=== PATIENT | male | born 1940 | race Caucasian/White ===

== ENCOUNTER → 2017-09-10 | Outpatient (CLI) | payer MEDICARE, OTHER | END | disposition home or self-care (01) | LOC: CFH 11:23 | PROVIDERS: ATTEND Nurse Practitioner Primary Care | DX: J44.9 Chronic obstructive pulmonary disease, unspecified (principal) | CPT/HCPCS: 71020 ==

== ENCOUNTER → 2017-09-15 | Outpatient (CLI) | payer MEDICARE, OTHER | END | disposition home or self-care (01) | LOC: CFH 09:23 | PROVIDERS: ATTEND Nurse Practitioner Primary Care | DX: J44.9 Chronic obstructive pulmonary disease, unspecified (principal); J18.9 Pneumonia, unspecified organism; Z12.5 Encounter for screening for malignant neoplasm of prostate; Z12.11 Encounter for screening for malignant neoplasm of colon; Z13.220 Encounter for screening for lipoid disorders; C62.90 Malignant neoplasm of unspecified testis, unspecified whether descended or undescended; C67.9 Malignant neoplasm of bladder, unspecified; E55.9 Vitamin D deficiency, unspecified; E78.2 Mixed hyperlipidemia; I48.91 Unspecified atrial fibrillation; J30.9 Allergic rhinitis, unspecified; E03.9 Hypothyroidism, unspecified; I50.9 Heart failure, unspecified; R73.01 Impaired fasting glucose; R54 Age-related physical debility; Z72.0 Tobacco use; Z95.0 Presence of cardiac pacemaker | CPT/HCPCS: 71020 ==

== ENCOUNTER 2017-10-02 12:08 | Observation (INO) | payer MEDICARE, OTHER ==
[~2017-10-02] VITALS: Ht 190.5 cm; Wt 86.0 kg
[~2017-10-02 12:08] MED LIST: CEFAZOLIN 1,000 MG ONE; GLYCOPYRROLATE 0.2MG/1ML, 5ML ONE; NEOSTIGMINE 1 MG/ML, 10ML ONE; PROPOFOL 10 MG/ML, 20ML ONE; ROCURONIUM 10 MG/ML,10ML ONE; SUCCINYLCHOLINE 20 MG/ML, 10ML ONE
[2017-10-02 12:56] VITALS: BP 97/64
[2017-10-02] MEDS ORDERED: LEVO150T5 PO (13:24)
[2017-10-02] MEDS ORDERED: UMEC1DIS INH (13:24)
[2017-10-02] MEDS ORDERED: FURO40TA6 PO (13:24)
[2017-10-02] MEDS ORDERED: BUDE10.2 INH (13:24)
[2017-10-02] MEDS ORDERED: ERGO500017 PO (13:24)
[2017-10-02] MEDS ORDERED: DESL5TAB PO (13:24)
[2017-10-02] MEDS ORDERED: CALC0.25 PO (13:24)
[2017-10-02] MEDS ORDERED: ATOR20TA PO (13:24)
[2017-10-02] MEDS ORDERED: TESTOSTERONE INJ (13:24)
[2017-10-02] MEDS ORDERED: LACTATED RINGERS 1,000 ML IV SCH (13:39)
[2017-10-02] MEDS ORDERED: PLEASE ENTER HEIGHT AND WEIGHT MC SCH (14:00)
[2017-10-02] MEDS ORDERED: FENTANYL PF 100 MCG/2ML ONE (14:31)
[2017-10-02] MEDS ORDERED: MIDAZOLAM 1 MG/ML, 2ML ONE (14:31)
[2017-10-02] MEDS ORDERED: DABI75CA3 PO (14:42)
[2017-10-02] MEDS ORDERED: STERILE WATER IV ONE (15:00)
[2017-10-02] MEDS ORDERED: MITOMYCIN IV ONE (15:00)
[2017-10-02 15:09] LABS: MICROSCOPIC AUTO
[2017-10-02] MEDS ORDERED: FENTANYL PF 100 MCG/2ML IV PRN (16:00)
[2017-10-02] MEDS ORDERED: OXYcodone 5 MG/5 ML ORAL.SOL UDC PO PRN (16:00)
[2017-10-02] MEDS ORDERED: HYDROmorphone 1 MG/ML, 1ML IV PRN (16:00)
[2017-10-02] MEDS ORDERED: ACETAMINOPHEN 325 MG TABLET PO PRN ×2 (16:00→17:00)
[2017-10-02] MEDS ORDERED: LABETALOL 5MG/ML, 20ML IV PRN (16:00)
[2017-10-02] MEDS ORDERED: METOCLOPRAMIDE 5 MG/ML, 2ML IV PRN (16:00)
[2017-10-02] MEDS ORDERED: ONDANSETRON 2MG/ML, 2ML IVPush PRN ×2 (16:00→17:00)
[2017-10-02] MEDS ORDERED: hydrALAzine 20 MG/ML, 1ML IV PRN (16:00)
[2017-10-02] MEDS ORDERED: SODIUM CHLORIDE 0.9% 1,000 ML IV SCH (16:31)
[2017-10-02] MEDS ORDERED: DOCUSATE 100 MG CAPSULE PO PRN (17:00)
[2017-10-02] MEDS ORDERED: TESTOSTERONE 200 MG INJ SCH ×2 (17:00→21:48)
[2017-10-02] MEDS ORDERED: ONDANSETRON ODT 4 MG PO PRN (17:00)
[2017-10-02] MEDS ORDERED: FLUTICASONE/VILANTEROL 200-25MCG/INH INH SCH (17:00)
[2017-10-02] MEDS ORDERED: LABETALOL 5MG/ML, 20ML IVPush PRN (17:00)
[2017-10-02] MEDS ORDERED: ERGOCALCIFEROL 50,000 UNIT CAPSULE PO SCH (17:00)
[2017-10-02] MEDS ORDERED: ENALAPRILAT 1.25 MG/ML, 2ML IVPush PRN (17:00)
[2017-10-02] MEDS ORDERED: BISACODYL 10 MG SUPP PR PRN (17:00)
[2017-10-02] MEDS ORDERED: ALBUTEROL/IPRATROPIUM 2.5MG/0.5MG, 3 ML ONE (17:15)
[2017-10-02 18:28] VITALS: BP 138/73
[2017-10-02] MEDS: ALBUTEROL/IPRATROPIUM 2.5MG/0.5MG, 3 ML NPPB SCH (20:03)
[2017-10-02] MEDS ORDERED: ATORVASTATIN 20 MG TABLET PO SCH (21:00)
[2017-10-02 23:03] LABS: BASOPHILS # (AUTO) 0.01 x10^3/uL (0-0.1); BASOPHILS % (AUTO) 0 % (0-1); EOSINOPHILS # (AUTO) 0.07 x10^3/uL (0-0.4); EOSINOPHILS % (AUTO) 1 % (1-7); LYMPHOCYTES % (AUTO) 11 % (22-44); MD NO; MEAN CORPUSCULAR HEMOGLOBIN 29.2 pg (27.5-34.5); MEAN CORPUSCULAR HGB CONC 32.5 g/dL (33.2-36.2); MEAN CORPUSCULAR VOLUME 89.8 fL (81-97); MEAN PLATELET VOLUME 7.6 fL (7.4-10.4); MONOCYTES # (AUTO) 0.64 x10^3/uL (0.2-0.8); MONOCYTES % (AUTO) 8 % (2-9); NEUTROPHILS % (AUTO) 81 % (42-75); PLATELET COUNT 196 x10^3/uL (130-400); RED BLOOD COUNT 4.08 x10^6/uL (4.38-5.82); RED CELL DISTRIBUTION WIDTH 18.6 % (9.4-14.8)
[2017-10-02 23:09] LABS: INTERNATIONAL NORMALIZED RATIO 1.02 (0.93-1.1); PROTHROMBIN TIME 10.5 Seconds (9.6-11.5)
[2017-10-02 23:11] LABS: ALANINE AMINOTRANSFERASE 15 U/L (12-78); ALBUMIN 2.8 g/dL (3.4-5.0); ANION GAP 6 mmol/L (5-15); CALCIUM 8.7 mg/dL (8.5-10.1); CHLORIDE 105 mmol/L (98-107); CREATININE 1.45 mg/dL (0.7-1.3)
[2017-10-02 23:13] LABS: ALKALINE PHOSPHATASE 98 U/L (45-117); BILIRUBIN,TOTAL 0.6 mg/dL (0.2-1.0); TOTAL PROTEIN 6.7 g/dL (6.4-8.2)
[2017-10-02] MEDS: SODIUM CHLORIDE 0.9% 1,000 ML IV SCH (23:43)
[2017-10-02 23:55] LABS: HEMOGLOBIN A1C 5.5 % (4.2-6.3)
[2017-10-03 00:01] VITALS: BP 115/68
[2017-10-03] MEDS: ALBUTEROL/IPRATROPIUM 2.5MG/0.5MG, 3 ML NPPB SCH ×2 (02:45→08:15)
[2017-10-03 04:00] VITALS: BP 124/73
[2017-10-03 05:25] LABS: BASOPHILS # (AUTO) 0.01 x10^3/uL (0-0.1); BASOPHILS % (AUTO) 0 % (0-1); EOSINOPHILS # (AUTO) 0.14 x10^3/uL (0-0.4); EOSINOPHILS % (AUTO) 2 % (1-7); LYMPHOCYTES # (AUTO) 1.06 x10^3/uL (1-3.4); LYMPHOCYTES % (AUTO) 11 % (22-44); MD NO; MEAN CORPUSCULAR HEMOGLOBIN 29.3 pg (27.5-34.5); MEAN CORPUSCULAR HGB CONC 32.5 g/dL (33.2-36.2); MEAN PLATELET VOLUME 8.5 fL (7.4-10.4); MONOCYTES # (AUTO) 0.76 x10^3/uL (0.2-0.8); MONOCYTES % (AUTO) 8 % (2-9); NEUTROPHILS # (AUTO) 7.33 x10^3/uL (1.8-6.8); NEUTROPHILS % (AUTO) 79 % (42-75); PLATELET COUNT 187 x10^3/uL (130-400); RED BLOOD COUNT 3.94 x10^6/uL (4.38-5.82); RED CELL DISTRIBUTION WIDTH 18.8 % (9.4-14.8)
[2017-10-03 05:28] LABS: CHLORIDE 106 mmol/L (98-107)
[2017-10-03 05:43] LABS: ANION GAP 6 mmol/L (5-15); CALCIUM 8.7 mg/dL (8.5-10.1); CHOL/HDL RATIO 4.8; CHOLESTEROL, TOTAL 171 mg/dL (140-239); CREATININE 1.37 mg/dL (0.7-1.3); HDL CHOL % 21 % (26-37); HDL CHOLESTEROL (DIRECT) 36 mg/dL (40-60); LDL CHOLESTEROL,CALCULATED 110 mg/dL (54-169); LDL/HDL RATIO 3.1 (0.5-3.0); THYROID STIMULATING HORMONE 0.068 mIU/L (0.358-3.740); TRIGLYCERIDES 127 mg/dL (50-200); VLDL CHOLESTEROL 25 mg/dL (0-25)
[2017-10-03] MEDS ORDERED: LEVOTHYROXINE 150 MCG TABLET PO SCH ×2 (06:00→09:00)
[2017-10-03 07:12] VITALS: BP 123/74
[2017-10-03] MEDS ORDERED: DESLORATADINE 5 MG PO SCH (09:00)
[2017-10-03] MEDS ORDERED: CALCITRIOL 0.25 MCG CAPSULE PO SCH (09:00)
[2017-10-03] MEDS: SODIUM CHLORIDE 0.9% 1,000 ML IV SCH (09:52)
[2017-10-03] MEDS ORDERED: FUROSEMIDE 40 MG/4 ML IV ONE (11:30)
[2017-10-03] MEDS ORDERED: TRAM50TA2 PO (11:59)
[2017-10-03] MEDS ORDERED: POLY17PO5 PO (12:01)
[2017-10-03] MEDS ORDERED: FUROSEMIDE 20 MG/2 ML ONE (12:37)
[2017-10-03 14:01] VITALS: BP 115/67
[2017-10-07] MEDS ORDERED: ERGOCALCIFEROL 50,000 UNIT CAPSULE PO SCH (17:00)
== END 2017-10-03 14:35 | disposition home or self-care (01) ==
LOC: OR 12:08 → ORIP 16:31 → 4NOR 17:36
PROVIDERS: ADMIT Student in an Organized Health Care Education/Training Program; ATTEND Internal Medicine
DX: C67.9 Malignant neoplasm of bladder, unspecified (principal); J44.1 Chronic obstructive pulmonary disease with (acute) exacerbation; I51.7 Cardiomegaly; D64.9 Anemia, unspecified; N17.9 Acute kidney failure, unspecified; N18.3 Chronic kidney disease, stage 3 (moderate); J96.21 Acute and chronic respiratory failure with hypoxia; I12.9 Hypertensive chronic kidney disease with stage 1 through stage 4 chronic kidney disease, or unspecified chronic kidney disease; E78.5 Hyperlipidemia, unspecified; E03.9 Hypothyroidism, unspecified; E78.00 Pure hypercholesterolemia, unspecified; N40.0 Benign prostatic hyperplasia without lower urinary tract symptoms; R73.03 Prediabetes; N35.9 Urethral stricture, unspecified; N36.8 Other specified disorders of urethra; Z85.47 Personal history of malignant neoplasm of testis; Z85.51 Personal history of malignant neoplasm of bladder; Z87.891 Personal history of nicotine dependence; Z95.0 Presence of cardiac pacemaker; Z99.81 Dependence on supplemental oxygen
CPT/HCPCS: 36415; 51720; 52234; 71010; 76770; 80048; 80053; 80061; 81001; 83036; 83735; 84100; 84443; 85025; 85610; 88305; 88341; 88342; 93005; 94640; 96374; C1769; G0378; J0330; J0690; J1940; J2250; J2704; J2710; J3010; J7030; J7120; J9280; J3490; J7620; G0461

== ENCOUNTER → 2017-10-23 | Outpatient (CLI) | payer MEDICARE, OTHER ==
[~2017-10-23] MED LIST changes: +ATOR20TA PO; +BUDE10.2 INH; +CALC0.25 PO; -CEFAZOLIN 1,000 MG ONE; +DABI75CA3 PO; +DESL5TAB PO; +ERGO500017 PO; +FURO40TA6 PO; -GLYCOPYRROLATE 0.2MG/1ML, 5ML ONE; +LEVO150T5 PO; -NEOSTIGMINE 1 MG/ML, 10ML ONE; +POLY17PO5 PO; -PROPOFOL 10 MG/ML, 20ML ONE; -ROCURONIUM 10 MG/ML,10ML ONE; -SUCCINYLCHOLINE 20 MG/ML, 10ML ONE; +TESTOSTERONE INJ; +TRAM50TA2 PO; +UMEC1DIS INH
== END | disposition home or self-care (01) ==
LOC: CFH 08:26
PROVIDERS: ATTEND Student in an Organized Health Care Education/Training Program
DX: N13.30 Unspecified hydronephrosis (principal); N13.4 Hydroureter; J90 Pleural effusion, not elsewhere classified; R82.8 Abnormal findings on cytological and histological examination of urine; N99.114 Postprocedural urethral stricture, male, unspecified; C67.8 Malignant neoplasm of overlapping sites of bladder; Z98.890 Other specified postprocedural states
CPT/HCPCS: 74176

== ENCOUNTER → 2017-10-27 | Outpatient (CLI) | payer MEDICARE, OTHER | END | disposition home or self-care (01) | LOC: CFH 14:14 | PROVIDERS: ATTEND Nurse Practitioner Primary Care | DX: I87.8 Other specified disorders of veins (principal); C62.90 Malignant neoplasm of unspecified testis, unspecified whether descended or undescended; C67.9 Malignant neoplasm of bladder, unspecified; J44.9 Chronic obstructive pulmonary disease, unspecified; E03.9 Hypothyroidism, unspecified; I50.9 Heart failure, unspecified; J30.9 Allergic rhinitis, unspecified; R79.9 Abnormal finding of blood chemistry, unspecified; E78.2 Mixed hyperlipidemia; E55.9 Vitamin D deficiency, unspecified; R73.01 Impaired fasting glucose; R54 Age-related physical debility; I48.91 Unspecified atrial fibrillation; R63.4 Abnormal weight loss; Z72.0 Tobacco use; Z95.0 Presence of cardiac pacemaker | CPT/HCPCS: 71046 ==

== ENCOUNTER → 2017-11-26 | Outpatient (CLI) | payer MEDICARE, OTHER ==
[~2017-11-26] MED LIST changes: +CEFD300C37 PO; +PRED20TA PO
[2017-11-26 15:54] LABS: BASOPHILS # (AUTO) 0.02 x10^3/uL (0-0.1); BASOPHILS % (AUTO) 0 % (0-1); EOSINOPHILS # (AUTO) 0.21 x10^3/uL (0-0.4); EOSINOPHILS % (AUTO) 3 % (1-7); LYMPHOCYTES % (AUTO) 14 % (22-44); MD NO; MEAN CORPUSCULAR HEMOGLOBIN 29.1 pg (27.5-34.5); MEAN CORPUSCULAR HGB CONC 32.9 g/dL (33.2-36.2); MEAN CORPUSCULAR VOLUME 88.4 fL (81-97); MONOCYTES # (AUTO) 0.62 x10^3/uL (0.2-0.8); MONOCYTES % (AUTO) 9 % (2-9); NEUTROPHILS # (AUTO) 5.32 x10^3/uL (1.8-6.8); NEUTROPHILS % (AUTO) 74 % (42-75); PLATELET COUNT 220 x10^3/uL (130-400); RED CELL DISTRIBUTION WIDTH 17.3 % (9.4-14.8)
[2017-11-26 18:45] LABS: CULTURE INDICATED? YES; MICROSCOPIC INDICATED
== END | disposition home or self-care (01) ==
LOC: LAB 14:56
PROVIDERS: ATTEND Nurse Practitioner Primary Care
DX: Z12.11 Encounter for screening for malignant neoplasm of colon (principal); Z12.5 Encounter for screening for malignant neoplasm of prostate; Z13.220 Encounter for screening for lipoid disorders; C67.9 Malignant neoplasm of bladder, unspecified; R53.83 Other fatigue; C62.90 Malignant neoplasm of unspecified testis, unspecified whether descended or undescended; E03.9 Hypothyroidism, unspecified; I50.9 Heart failure, unspecified; J44.9 Chronic obstructive pulmonary disease, unspecified; E78.2 Mixed hyperlipidemia; J30.9 Allergic rhinitis, unspecified; R05 Cough; E55.9 Vitamin D deficiency, unspecified; R79.9 Abnormal finding of blood chemistry, unspecified; R73.01 Impaired fasting glucose; I48.91 Unspecified atrial fibrillation; R63.4 Abnormal weight loss; R54 Age-related physical debility; L89.310 Pressure ulcer of right buttock, unstageable; J18.9 Pneumonia, unspecified organism; L89.90 Pressure ulcer of unspecified site, unspecified stage; Z95.0 Presence of cardiac pacemaker; Z99.81 Dependence on supplemental oxygen; Z72.0 Tobacco use
CPT/HCPCS: 36415; 81001; 85025; 87086

== ENCOUNTER 2017-11-29 17:24 | Inpatient (IN) | payer MEDICARE, OTHER ==
[~2017-11-29] VITALS: Ht 190.5 cm; Wt 99.8 kg
[2017-11-29] MEDS ORDERED: DUONEB INH (18:19)
[2017-11-29] MEDS ORDERED: [UNRECOGNIZED DRUG - CODE] PO (18:19)
[2017-11-29] MEDS ORDERED: ALBU18HF INH (18:19)
[2017-11-29] MEDS ORDERED: SODIUM CHLORIDE FLUSH 10ML SYR IVF ONE (18:30)
[2017-11-29 18:41] LABS: BASOPHILS # (AUTO) 0.01 x10^3/uL (0-0.1); BASOPHILS % (AUTO) 0 % (0-1); EOSINOPHILS # (AUTO) 0.07 x10^3/uL (0-0.4); EOSINOPHILS % (AUTO) 1 % (1-7); LYMPHOCYTES # (AUTO) 0.46 x10^3/uL (1-3.4); LYMPHOCYTES % (AUTO) 5 % (22-44); MD NO; MEAN CORPUSCULAR HGB CONC 32.9 g/dL (33.2-36.2); MEAN CORPUSCULAR VOLUME 88.1 fL (81-97); MEAN PLATELET VOLUME 7.8 fL (7.4-10.4); MONOCYTES # (AUTO) 0.35 x10^3/uL (0.2-0.8); MONOCYTES % (AUTO) 4 % (2-9); NEUTROPHILS % (AUTO) 90 % (42-75); PLATELET COUNT 250 x10^3/uL (130-400); RED BLOOD COUNT 4.36 x10^6/uL (4.38-5.82); RED CELL DISTRIBUTION WIDTH 17.7 % (9.4-14.8)
[2017-11-29 18:48] LABS: INTERNATIONAL NORMALIZED RATIO 1.12 (0.93-1.1); PROTHROMBIN TIME 11.5 Seconds (9.6-11.5)
[2017-11-29 18:50] LABS: ALANINE AMINOTRANSFERASE 16 U/L (12-78); ALBUMIN 2.8 g/dL (3.4-5.0); ANION GAP 6 mmol/L (5-15); CALCIUM 9.2 mg/dL (8.5-10.1); CHLORIDE 104 mmol/L (98-107); CREATININE 1.61 mg/dL (0.7-1.3)
[2017-11-29 18:55] LABS: ALKALINE PHOSPHATASE 82 U/L (45-117); BILIRUBIN,TOTAL 0.5 mg/dL (0.2-1.0); TOTAL PROTEIN 6.8 g/dL (6.4-8.2); TROPONIN I < 0.015 ng/mL (0.000-0.045)
[2017-11-29] MEDS ORDERED: ONDANSETRON 2MG/ML, 2ML IVPush PRN (21:30)
[2017-11-29] MEDS ORDERED: ACETAMINOPHEN 325 MG TABLET PO PRN (21:30)
[2017-11-29] MEDS ORDERED: GUAIFENESIN/DM 200-20MG, 10ML UDC PO PRN (21:30)
[2017-11-29] MEDS ORDERED: SODIUM CHLORIDE FLUSH 10ML SYR IVF PRN (21:30)
[2017-11-29] MEDS ORDERED: hydrALAzine 20 MG/ML, 1ML IVPush PRN (21:30)
[2017-11-29] MEDS ORDERED: ERGOCALCIFEROL 50,000 UNIT CAPSULE PO SCH (21:30)
[2017-11-30] MEDS ORDERED: ALBUTEROL/IPRATROPIUM 2.5MG/0.5MG, 3 ML ONE (00:02)
[2017-11-30] MEDS: ALBUTEROL/IPRATROPIUM 2.5MG/0.5MG, 3 ML NPPB SCH ×6 (00:10→23:45)
[2017-11-30] MEDS: SODIUM CHLORIDE 0.9% 1,000 ML IV SCH ×2 (00:19→13:48)
[2017-11-30] MEDS ORDERED: ALBUTEROL SULFATE 2.5 MG/3 ML NPPB PRN (00:30)
[2017-11-30 00:36] VITALS: BP 145/76
[2017-11-30] MEDS: DABIGATRAN 75 MG CAPSULE PO SCH ×3 (00:36→20:28)
[2017-11-30 00:38] VITALS: BP 145/76
[2017-11-30 05:01] LABS: BASOPHILS # (AUTO) 0.04 x10^3/uL (0-0.1); BASOPHILS % (AUTO) 0 % (0-1); EOSINOPHILS % (AUTO) 0 % (1-7); LYMPHOCYTES # (AUTO) 1.04 x10^3/uL (1-3.4); LYMPHOCYTES % (AUTO) 11 % (22-44); MD NO; MEAN CORPUSCULAR HEMOGLOBIN 29.4 pg (27.5-34.5); MEAN CORPUSCULAR VOLUME 89.1 fL (81-97); MEAN PLATELET VOLUME 8.1 fL (7.4-10.4); MONOCYTES # (AUTO) 0.97 x10^3/uL (0.2-0.8); MONOCYTES % (AUTO) 10 % (2-9); NEUTROPHILS # (AUTO) 7.76 x10^3/uL (1.8-6.8); NEUTROPHILS % (AUTO) 79 % (42-75); PLATELET COUNT 215 x10^3/uL (130-400); RED BLOOD COUNT 4.13 x10^6/uL (4.38-5.82)
[2017-11-30 05:10] LABS: CHLORIDE 105 mmol/L (98-107)
[2017-11-30 05:19] LABS: ALANINE AMINOTRANSFERASE 16 U/L (12-78); ALBUMIN 2.7 g/dL (3.4-5.0); ALKALINE PHOSPHATASE 81 U/L (45-117); ANION GAP 7 mmol/L (5-15); BILIRUBIN,TOTAL 0.5 mg/dL (0.2-1.0); CALCIUM 9.3 mg/dL (8.5-10.1); CREATININE 1.37 mg/dL (0.7-1.3); TOTAL PROTEIN 6.4 g/dL (6.4-8.2)
[2017-11-30] MEDS: LEVOTHYROXINE 150 MCG TABLET PO SCH (06:13)
[2017-11-30 07:10] VITALS: BP 138/73
[2017-11-30] MEDS: POLYETHYLENE GLYCOL 17 GM PACKET PO SCH (08:44)
[2017-11-30] MEDS: FLUTICASONE/VILANTEROL 200-25MCG/INH INH SCH (12:43)
[2017-11-30] MEDS ORDERED: OMNIPAQUE 350 MG/ML, 100ML BOTTLE ONE (12:44)
[2017-11-30 12:49] VITALS: BP 149/80
[2017-11-30 19:23] VITALS: BP 134/73
[2017-11-30] MEDS: ATORVASTATIN 20 MG TABLET PO SCH (20:28)
[2017-12-01 00:24] VITALS: BP 147/85
[2017-12-01] MEDS: SODIUM CHLORIDE 0.9% 1,000 ML IV SCH (03:17)
[2017-12-01 05:24] LABS: MEAN CORPUSCULAR HEMOGLOBIN 29.4 pg (27.5-34.5); MEAN CORPUSCULAR HGB CONC 32.9 g/dL (33.2-36.2); MEAN CORPUSCULAR VOLUME 89.2 fL (81-97); MEAN PLATELET VOLUME 8.1 fL (7.4-10.4); PLATELET COUNT 225 x10^3/uL (130-400); RED BLOOD COUNT 4.33 x10^6/uL (4.38-5.82); RED CELL DISTRIBUTION WIDTH 17.1 % (9.4-14.8)
[2017-12-01] MEDS: LEVOTHYROXINE 150 MCG TABLET PO SCH (05:26)
[2017-12-01 05:37] LABS: CHLORIDE 108 mmol/L (98-107)
[2017-12-01 05:52] LABS: ANION GAP 9 mmol/L (5-15); CALCIUM 8.5 mg/dL (8.5-10.1); CREATININE 1.22 mg/dL (0.7-1.3)
[2017-12-01 05:56] LABS: MD YES
[2017-12-01 06:01] LABS: LYMPH#(MANUAL) 1.44 x10^3/uL (1-3.4); LYMPHS% (MANUAL) 15 % (22-44); MONOS#(MANUAL) 0.48 x10^3/uL (0.3-2.7); MONOS% (MANUAL) 5 % (2-9); MYELOCYTES% (MANUAL) 1 % (0-0); SEG#(MANUAL) 7.58 x10^3/uL (1.8-6.8); SEGS% (MANUAL) 79 % (42-75)
[2017-12-01 06:02] LABS: <PLATELET ESTIMATE> ADEQUATE; <PLT MORPHOLOGY> NORMAL PLT MORPH; ANISOCYTOSIS 1+; POLYCHROMASIA 1+
[2017-12-01 07:00] VITALS: BP 132/78
[2017-12-01] MEDS: ALBUTEROL/IPRATROPIUM 2.5MG/0.5MG, 3 ML NPPB SCH ×5 (07:15→22:00)
[2017-12-01] MEDS: DABIGATRAN 75 MG CAPSULE PO SCH ×2 (09:25→21:30)
[2017-12-01] MEDS: POLYETHYLENE GLYCOL 17 GM PACKET PO SCH (09:25)
[2017-12-01] MEDS: FLUTICASONE/VILANTEROL 200-25MCG/INH INH SCH (09:25)
[2017-12-01] MEDS: methylPREDNISolone SOD SUCC 40 MG/ML IV SCH ×2 (12:47→21:30)
[2017-12-01 13:47] VITALS: BP 136/76
[2017-12-01 19:10] VITALS: BP 149/79
[2017-12-01] MEDS: ATORVASTATIN 20 MG TABLET PO SCH (21:29)
[2017-12-02 02:00] VITALS: BP 144/77
[2017-12-02] MEDS: methylPREDNISolone SOD SUCC 40 MG/ML IV SCH ×3 (04:27→20:45)
[2017-12-02] MEDS: LEVOTHYROXINE 150 MCG TABLET PO SCH (05:18)
[2017-12-02 07:24] VITALS: BP 153/82
[2017-12-02] MEDS: ALBUTEROL/IPRATROPIUM 2.5MG/0.5MG, 3 ML NPPB SCH ×5 (07:48→22:00)
[2017-12-02] MEDS: DABIGATRAN 75 MG CAPSULE PO SCH ×2 (09:00→20:45)
[2017-12-02] MEDS: FLUTICASONE/VILANTEROL 200-25MCG/INH INH SCH (09:02)
[2017-12-02] MEDS: POLYETHYLENE GLYCOL 17 GM PACKET PO SCH (09:02)
[2017-12-02 12:39] VITALS: BP 126/66
[2017-12-02 19:23] VITALS: BP 149/68
[2017-12-02] MEDS: ATORVASTATIN 20 MG TABLET PO SCH (20:45)
[2017-12-03 01:20] VITALS: BP 143/75
[2017-12-03] MEDS: LEVOTHYROXINE 150 MCG TABLET PO SCH (05:10)
[2017-12-03] MEDS: methylPREDNISolone SOD SUCC 40 MG/ML IV SCH ×3 (05:10→20:30)
[2017-12-03 06:55] VITALS: BP 148/79
[2017-12-03] MEDS: ALBUTEROL/IPRATROPIUM 2.5MG/0.5MG, 3 ML NPPB SCH ×5 (07:23→22:44)
[2017-12-03] MEDS: FLUTICASONE/VILANTEROL 200-25MCG/INH INH SCH (08:54)
[2017-12-03] MEDS: POLYETHYLENE GLYCOL 17 GM PACKET PO SCH (08:54)
[2017-12-03] MEDS: DABIGATRAN 75 MG CAPSULE PO SCH ×2 (08:54→21:00)
[2017-12-03 12:40] VITALS: BP 154/74
[2017-12-03 19:29] VITALS: BP 165/80
[2017-12-03] MEDS: ATORVASTATIN 20 MG TABLET PO SCH (21:47)
[2017-12-04 01:56] VITALS: BP 150/79
[2017-12-04] MEDS: LEVOTHYROXINE 150 MCG TABLET PO SCH (04:50)
[2017-12-04] MEDS: methylPREDNISolone SOD SUCC 40 MG/ML IV SCH ×2 (04:50→12:55)
[2017-12-04 06:51] VITALS: BP 156/64
[2017-12-04] MEDS: ALBUTEROL/IPRATROPIUM 2.5MG/0.5MG, 3 ML NPPB SCH ×2 (07:36→11:20)
[2017-12-04] MEDS: POLYETHYLENE GLYCOL 17 GM PACKET PO SCH (09:00)
[2017-12-04] MEDS: FLUTICASONE/VILANTEROL 200-25MCG/INH INH SCH (09:40)
[2017-12-04] MEDS: DABIGATRAN 75 MG CAPSULE PO SCH (09:40)
[2017-12-04] MEDS ORDERED: FLUT1BLS INH (10:51)
[2017-12-04] MEDS ORDERED: PRED20TA PO (10:54)
[2017-12-04 14:31] VITALS: BP 156/73
== END 2017-12-04 18:25 | disposition home or self-care (01) | DRG 314 ==
LOC: ED 20:43 → EDIP 21:02 → SUATTDRO 21:03 → 4EST 11-30 00:13 → DCLOUNGE 12-04 16:07 → 4EST 12-04 17:09
PROVIDERS: ADMIT Hospitalist; ATTEND Hospitalist
DX: I27.21 Secondary pulmonary arterial hypertension (principal); J96.21 Acute and chronic respiratory failure with hypoxia; E43 Unspecified severe protein-calorie malnutrition; I48.2 Chronic atrial fibrillation; D68.69 Other thrombophilia; J84.10 Pulmonary fibrosis, unspecified; Z99.81 Dependence on supplemental oxygen; J44.1 Chronic obstructive pulmonary disease with (acute) exacerbation; N39.0 Urinary tract infection, site not specified; E03.9 Hypothyroidism, unspecified; N14.1 Nephropathy induced by other drugs, medicaments and biological substances; Z68.27 Body mass index [BMI] 27.0-27.9, adult; E78.5 Hyperlipidemia, unspecified; F17.210 Nicotine dependence, cigarettes, uncomplicated; G47.30 Sleep apnea, unspecified; T50.8X5A Adverse effect of diagnostic agents, initial encounter; Z79.01 Long term (current) use of anticoagulants; Z85.47 Personal history of malignant neoplasm of testis; Z85.51 Personal history of malignant neoplasm of bladder; Z91.19 Patient's noncompliance with other medical treatment and regimen; Z87.01 Personal history of pneumonia (recurrent); Z88.8 Allergy status to other drugs, medicaments and biological substances
CPT/HCPCS: 36415; 71045; 71275; 80048; 80053; 83735; 83880; 84100; 84484; 85025; 85610; 85730; 93005; 93970; 94640; 99285; J7620; Q9967; J2920; J7030

== ENCOUNTER → 2017-12-24 | Outpatient (CLI) | payer MEDICARE, OTHER ==
[~2017-12-24] MED LIST changes: +ALBU18HF INH; +DUONEB INH; +FLUT1BLS INH; +FUROSEMIDE 20 MG/2 ML ONE; +[UNRECOGNIZED DRUG - CODE] PO
== END | disposition home or self-care (01) ==
LOC: RAD 10:17
PROVIDERS: ATTEND Student in an Organized Health Care Education/Training Program
DX: N13.30 Unspecified hydronephrosis (principal)
CPT/HCPCS: 78708; A9562; J1940

== ENCOUNTER 2018-01-05 11:55 | Emergency (ER) | payer MEDICARE, OTHER ==
[~2018-01-05] VITALS: Ht 190.5 cm; Wt 90.5 kg
[~2018-01-05 11:55] MED LIST changes: -FUROSEMIDE 20 MG/2 ML ONE
[2018-01-05 12:38] LABS: BASOPHILS # (AUTO) 0.04 x10^3/uL (0-0.1); BASOPHILS % (AUTO) 1 % (0-1); EOSINOPHILS # (AUTO) 0.13 x10^3/uL (0-0.4); EOSINOPHILS % (AUTO) 2 % (1-7); LYMPHOCYTES # (AUTO) 1.15 x10^3/uL (1-3.4); LYMPHOCYTES % (AUTO) 14 % (22-44); MD NO; MEAN CORPUSCULAR HEMOGLOBIN 29.6 pg (27.5-34.5); MEAN CORPUSCULAR HGB CONC 33.3 g/dL (33.2-36.2); MEAN CORPUSCULAR VOLUME 88.9 fL (81-97); MEAN PLATELET VOLUME 8.4 fL (7.4-10.4); MONOCYTES # (AUTO) 0.67 x10^3/uL (0.2-0.8); MONOCYTES % (AUTO) 8 % (2-9); NEUTROPHILS # (AUTO) 6.31 x10^3/uL (1.8-6.8); NEUTROPHILS % (AUTO) 76 % (42-75); PLATELET COUNT 120 x10^3/uL (130-400); RED BLOOD COUNT 4.25 x10^6/uL (4.38-5.82); RED CELL DISTRIBUTION WIDTH 19.5 % (9.4-14.8)
[2018-01-05 12:50] LABS: ALBUMIN 2.8 g/dL (3.4-5.0); ANION GAP 8 mmol/L (5-15); CALCIUM 9.1 mg/dL (8.5-10.1); CHLORIDE 102 mmol/L (98-107); CREATININE 1.44 mg/dL (0.7-1.3)
[2018-01-05 12:54] LABS: TROPONIN I < 0.015 ng/mL (0.000-0.045)
[2018-01-05] MEDS ORDERED: ALBUTEROL/IPRATROPIUM 2.5MG/0.5MG, 3 ML ONE (13:10)
[2018-01-05] MEDS ORDERED: methylPREDNISolone SOD SUCC 125 MG/2 ML IVP ONE (13:30)
[2018-01-05] MEDS ORDERED: ALBUTEROL/IPRATROPIUM 2.5MG/0.5MG, 3 ML NPPB ONE (13:30)
[2018-01-05] MEDS ORDERED: methylPREDNISolone SOD SUCC 125 MG/2 ML ONE (13:43)
[2018-01-05 15:12] VITALS: BP 131/63
== END 2018-01-05 15:19 | disposition home or self-care (01) ==
LOC: ED 13:46
DX: J44.1 Chronic obstructive pulmonary disease with (acute) exacerbation (principal); I10 Essential (primary) hypertension; I48.91 Unspecified atrial fibrillation; Z87.891 Personal history of nicotine dependence; Z85.51 Personal history of malignant neoplasm of bladder
CPT/HCPCS: 36415; 71045; 80048; 82040; 83880; 84484; 85025; 93005; 94640; 96374; 99285; J2930; J7620

== ENCOUNTER 2018-01-13 16:08 | Inpatient (IN) | payer MEDICARE, OTHER ==
[~2018-01-13] VITALS: Ht 190.5 cm; Wt 90.5 kg
[2018-01-13 16:40] LABS: BASOPHILS # (AUTO) 0.08 x10^3/uL (0-0.1); BASOPHILS % (AUTO) 1 % (0-1); EOSINOPHILS # (AUTO) 0.08 x10^3/uL (0-0.4); EOSINOPHILS % (AUTO) 1 % (1-7); LYMPHOCYTES # (AUTO) 1.56 x10^3/uL (1-3.4); LYMPHOCYTES % (AUTO) 13 % (22-44); MD NO; MEAN CORPUSCULAR HEMOGLOBIN 29.9 pg (27.5-34.5); MEAN CORPUSCULAR HGB CONC 33.6 g/dL (33.2-36.2); MEAN CORPUSCULAR VOLUME 88.8 fL (81-97); MONOCYTES # (AUTO) 0.69 x10^3/uL (0.2-0.8); MONOCYTES % (AUTO) 6 % (2-9); NEUTROPHILS # (AUTO) 9.65 x10^3/uL (1.8-6.8); NEUTROPHILS % (AUTO) 80 % (42-75); PLATELET COUNT 228 x10^3/uL (130-400); RED BLOOD COUNT 4.83 x10^6/uL (4.38-5.82); RED CELL DISTRIBUTION WIDTH 19.3 % (9.4-14.8)
[2018-01-13] MEDS ORDERED: ALBUTEROL/IPRATROPIUM 2.5MG/0.5MG, 3 ML ONE (16:49)
[2018-01-13] MEDS ORDERED: methylPREDNISolone SOD SUCC 125 MG/2 ML IVP ONE (17:00)
[2018-01-13] MEDS ORDERED: ALBUTEROL/IPRATROPIUM 2.5MG/0.5MG, 3 ML NPPB ONE (17:00)
[2018-01-13] MEDS ORDERED: methylPREDNISolone SOD SUCC 125 MG/2 ML ONE (17:10)
[2018-01-13 17:17] LABS: INTERNATIONAL NORMALIZED RATIO 1.25 (0.93-1.1); PROTHROMBIN TIME 12.8 Seconds (9.6-11.5)
[2018-01-13] MEDS ORDERED: PREDNISONE (17:54)
[2018-01-13] MEDS ORDERED: SODIUM CHLORIDE FLUSH 10ML SYR IVF PRN (18:30)
[2018-01-13] MEDS ORDERED: ALBUTEROL/IPRATROPIUM 2.5MG/0.5MG, 3 ML NPPB PRN (19:30)
[2018-01-13 19:51] VITALS: BP 125/71
[2018-01-13] MEDS: ALBUTEROL/IPRATROPIUM 2.5MG/0.5MG, 3 ML NPPB SCH (20:00)
[2018-01-13] MEDS ORDERED: SODIUM CHLORIDE 0.9% 1,000 ML IV SCH (20:50)
[2018-01-13] MEDS ORDERED: TEMPLATE NON-FORMULARY MED. (Budesonide/Formoterol Fumarate (Symbicort 160-4.5 Mcg Inhaler INH SCH (21:00)
[2018-01-13] MEDS ORDERED: ACETAMINOPHEN 325 MG TABLET PO PRN (21:00)
[2018-01-13] MEDS ORDERED: ALBUTEROL/IPRATROPIUM 2.5MG/0.5MG, 3 ML NEB PRN (21:00)
[2018-01-13] MEDS ORDERED: ENOXAPARIN 30 MG/0.3 ML SQ SCH (21:00)
[2018-01-13] MEDS ORDERED: ERGOCALCIFEROL 50,000 UNIT CAPSULE PO SCH (21:00)
[2018-01-13] MEDS ORDERED: TEMPLATE NON-FORMULARY MED. (Albuterol Sulfate (Ventolin Hfa) 90 MCG) INH SCH (21:00)
[2018-01-13] MEDS ORDERED: POLYETHYLENE GLYCOL 17 GM PACKET PO PRN (21:00)
[2018-01-13] MEDS: DABIGATRAN 150 MG CAPSULE PO SCH (21:44)
[2018-01-13] MEDS: CALCITRIOL 0.25 MCG CAPSULE PO SCH (21:44)
[2018-01-13] MEDS: ATORVASTATIN 20 MG TABLET PO SCH (21:44)
[2018-01-14 01:50] VITALS: BP 114/69
[2018-01-14] MEDS: LEVOTHYROXINE 150 MCG TABLET PO SCH (05:19)
[2018-01-14 05:28] LABS: BASOPHILS % (AUTO) 0 % (0-1); EOSINOPHILS % (AUTO) 0 % (1-7); LYMPHOCYTES # (AUTO) 0.45 x10^3/uL (1-3.4); LYMPHOCYTES % (AUTO) 6 % (22-44); MD NO; MEAN CORPUSCULAR HEMOGLOBIN 29.4 pg (27.5-34.5); MEAN CORPUSCULAR HGB CONC 33.3 g/dL (33.2-36.2); MEAN CORPUSCULAR VOLUME 88.3 fL (81-97); MEAN PLATELET VOLUME 8.4 fL (7.4-10.4); MONOCYTES # (AUTO) 0.09 x10^3/uL (0.2-0.8); MONOCYTES % (AUTO) 1 % (2-9); NEUTROPHILS # (AUTO) 6.59 x10^3/uL (1.8-6.8); NEUTROPHILS % (AUTO) 92 % (42-75); PLATELET COUNT 193 x10^3/uL (130-400); RED BLOOD COUNT 4.26 x10^6/uL (4.38-5.82); RED CELL DISTRIBUTION WIDTH 19.9 % (9.4-14.8)
[2018-01-14 05:32] LABS: CHLORIDE 103 mmol/L (98-107)
[2018-01-14 05:42] LABS: ALANINE AMINOTRANSFERASE 21 U/L (12-78); ALBUMIN 2.9 g/dL (3.4-5.0); ALKALINE PHOSPHATASE 118 U/L (45-117); ANION GAP 10 mmol/L (5-15); BILIRUBIN,TOTAL 0.7 mg/dL (0.2-1.0); CALCIUM 9.2 mg/dL (8.5-10.1); CHOL/HDL RATIO 4.4; CHOLESTEROL, TOTAL 213 mg/dL (140-239); CREATININE 1.98 mg/dL (0.7-1.3); HDL CHOL % 23 % (26-37); HDL CHOLESTEROL (DIRECT) 48 mg/dL (40-60); LDL CHOLESTEROL,CALCULATED 140 mg/dL (54-169); LDL/HDL RATIO 2.9 (0.5-3.0); TOTAL PROTEIN 7.2 g/dL (6.4-8.2); TRIGLYCERIDES 127 mg/dL (50-200); VLDL CHOLESTEROL 25 mg/dL (0-25)
[2018-01-14] MEDS: ALBUTEROL/IPRATROPIUM 2.5MG/0.5MG, 3 ML NPPB SCH ×2 (06:41→10:14)
[2018-01-14 07:25] VITALS: BP 121/72
[2018-01-14] MEDS: CALCITRIOL 0.25 MCG CAPSULE PO SCH ×3 (08:19→20:12)
[2018-01-14] MEDS: FUROSEMIDE 40 MG TABLET PO SCH (08:20)
[2018-01-14] MEDS: CETIRIZINE 10 MG TABLET PO SCH (08:20)
[2018-01-14] MEDS: DABIGATRAN 150 MG CAPSULE PO SCH (08:20)
[2018-01-14] MEDS: FLUTICASONE/VILANTEROL 200-25MCG/INH INH SCH (10:50)
[2018-01-14 13:30] VITALS: BP 114/69
[2018-01-14] MEDS: ATORVASTATIN 20 MG TABLET PO SCH (20:12)
[2018-01-14 22:35] VITALS: BP 132/77
[2018-01-15] MEDS ORDERED: ALBUTEROL SULFATE 2.5 MG/3 ML NPPB PRN (01:00)
[2018-01-15 01:16] VITALS: BP 127/78
[2018-01-15 05:11] LABS: MEAN CORPUSCULAR HEMOGLOBIN 29.4 pg (27.5-34.5); MEAN CORPUSCULAR VOLUME 89.1 fL (81-97); MEAN PLATELET VOLUME 8.6 fL (7.4-10.4); PLATELET COUNT 195 x10^3/uL (130-400); RED CELL DISTRIBUTION WIDTH 19.8 % (9.4-14.8)
[2018-01-15 05:20] LABS: ALBUMIN 2.9 g/dL (3.4-5.0); CALCIUM 8.9 mg/dL (8.5-10.1); CHLORIDE 105 mmol/L (98-107)
[2018-01-15 05:26] LABS: ALANINE AMINOTRANSFERASE 17 U/L (12-78); ALKALINE PHOSPHATASE 88 U/L (45-117); ANION GAP 6 mmol/L (5-15); BILIRUBIN,TOTAL 0.5 mg/dL (0.2-1.0); CREATININE 1.34 mg/dL (0.7-1.3); TOTAL PROTEIN 6.9 g/dL (6.4-8.2)
[2018-01-15 05:51] LABS: BASOPHILS % (AUTO) 0 % (0-1); EOSINOPHILS % (AUTO) 0 % (1-7); LYMPHOCYTES # (AUTO) 0.78 x10^3/uL (1-3.4); LYMPHOCYTES % (AUTO) 5 % (22-44); MD SCAN; MONOCYTES # (AUTO) 1.04 x10^3/uL (0.2-0.8); MONOCYTES % (AUTO) 7 % (2-9); NEUTROPHILS # (AUTO) 13.54 x10^3/uL (1.8-6.8); NEUTROPHILS % (AUTO) 88 % (42-75)
[2018-01-15] MEDS ORDERED: ALBUTEROL/IPRATROPIUM 2.5MG/0.5MG, 3 ML NPPB SCH (07:00)
[2018-01-15 08:00] VITALS: BP 109/62
[2018-01-15] MEDS: FLUTICASONE/VILANTEROL 200-25MCG/INH INH SCH (09:10)
[2018-01-15] MEDS: FUROSEMIDE 40 MG TABLET PO SCH (10:32)
[2018-01-15] MEDS: LEVOTHYROXINE 150 MCG TABLET PO SCH (10:32)
[2018-01-15] MEDS: CALCITRIOL 0.25 MCG CAPSULE PO SCH ×3 (10:32→21:14)
[2018-01-15] MEDS: CETIRIZINE 10 MG TABLET PO SCH (10:32)
[2018-01-15 14:00] VITALS: BP 125/67
[2018-01-15] MEDS ORDERED: HEPARIN 5,000 UNITS/ML, 1ML IV ONE (16:00)
[2018-01-15] MEDS ORDERED: HEPARIN 25,000 UNITS/500ML PMX 500 ML IV PRN (16:00)
[2018-01-15] MEDS ORDERED: HEPARIN 5,000 UNITS/ML, 1ML IV PRN (16:00)
[2018-01-15 18:44] VITALS: BP 118/66
[2018-01-15] MEDS: ATORVASTATIN 20 MG TABLET PO SCH (21:14)
[2018-01-16 04:36] VITALS: BP 125/60
[2018-01-16] MEDS: LEVOTHYROXINE 150 MCG TABLET PO SCH (05:46)
[2018-01-16 06:04] LABS: ANION GAP 4 mmol/L (5-15); CALCIUM 8.9 mg/dL (8.5-10.1); CHLORIDE 106 mmol/L (98-107); CREATININE 1.28 mg/dL (0.7-1.3)
[2018-01-16 06:30] LABS: MEAN CORPUSCULAR HEMOGLOBIN 29.3 pg (27.5-34.5); MEAN CORPUSCULAR HGB CONC 32.8 g/dL (33.2-36.2); MEAN CORPUSCULAR VOLUME 89.2 fL (81-97); MEAN PLATELET VOLUME 8.4 fL (7.4-10.4); PLATELET COUNT 190 x10^3/uL (130-400); RED BLOOD COUNT 4.06 x10^6/uL (4.38-5.82); RED CELL DISTRIBUTION WIDTH 19.6 % (9.4-14.8)
[2018-01-16 06:52] LABS: MD YES
[2018-01-16 06:55] LABS: BAND#(MANUAL) 0.24 x10^3/uL; BANDS%(MANUAL) 2 % (0-7); EOS#(MANUAL) 0.24 x10^3/uL (0.0-0.4); EOS% (MANUAL) 2 % (1-7); LYMPHS% (MANUAL) 21 % (22-44); METAMYELOCYTES# (MANUAL) 0.24 x10^3/uL (0-0); METAMYELOCYTES% (MANUAL) 2 % (0-1); MONOS#(MANUAL) 0.71 x10^3/uL (0.3-2.7); MONOS% (MANUAL) 6 % (2-9); MYELOCYTES# (MANUAL) 0.12 x10^3/uL (0-0); MYELOCYTES% (MANUAL) 1 % (0-0); SEG#(MANUAL) 7.85 x10^3/uL (1.8-6.8); SEGS% (MANUAL) 66 % (42-75)
[2018-01-16 07:00] LABS: ANISOCYTOSIS 1+; POLYCHROMASIA 1+
[2018-01-16 07:01] LABS: <PLATELET ESTIMATE> ADEQUATE; <PLT MORPHOLOGY> NORMAL PLT MORPH; OVALOCYTES 1+
[2018-01-16] MEDS ORDERED: LIDOCAINE 1%, 50ML ONE (07:30)
[2018-01-16] MEDS ORDERED: PAPAVERINE 30 MG/ML, 2ML ONE (07:30)
[2018-01-16] MEDS ORDERED: BUPIVACAINE/PF 0.5% ONE (07:30)
[2018-01-16] MEDS ORDERED: HEPARIN 1,000 UNITS/ML, 10ML ONE ×2 (07:31→09:54)
[2018-01-16] MEDS ORDERED: EPINEPHRINE 1 MG/ML, 1ML ONE (07:31)
[2018-01-16] MEDS ORDERED: BACITRACIN 50,000 UNIT ONE (07:31)
[2018-01-16] MEDS ORDERED: PROTAMINE SULFATE 10 MG/ML, 5ML ONE (07:31)
[2018-01-16] MEDS ORDERED: NITROPRUSSIDE 25 MG/ML, 2ML ONE (07:31)
[2018-01-16] MEDS ORDERED: THROMBIN 20,000 UNIT VIAL TP ONE (07:31)
[2018-01-16 07:41] VITALS: BP 124/70
[2018-01-16] MEDS ORDERED: LIDOCAINE GEL 2%, 5ML ONE (08:14)
[2018-01-16] MEDS ORDERED: FENTANYL PF 250 MCG/5ML ONE (08:15)
[2018-01-16] MEDS ORDERED: LIDOCAINE-MPF 2% ,5ML ONE ×2 (08:16)
[2018-01-16] MEDS ORDERED: ROCURONIUM 10 MG/ML,10ML ONE (08:35)
[2018-01-16] MEDS ORDERED: SUCCINYLCHOLINE 20 MG/ML, 10ML ONE (08:35)
[2018-01-16] MEDS: FUROSEMIDE 40 MG TABLET PO SCH (09:00)
[2018-01-16] MEDS: FLUTICASONE/VILANTEROL 200-25MCG/INH INH SCH (09:00)
[2018-01-16] MEDS: CALCITRIOL 0.25 MCG CAPSULE PO SCH ×3 (09:00→20:36)
[2018-01-16] MEDS: CETIRIZINE 10 MG TABLET PO SCH (09:00)
[2018-01-16] MEDS ORDERED: BUPIVACAINE/PF-EPI 0.5% 1:200K IM ONE (09:22)
[2018-01-16] MEDS ORDERED: FENTANYL PF 100 MCG/2ML IV PRN (10:30)
[2018-01-16] MEDS ORDERED: ALBUTEROL SULFATE 2.5 MG/3 ML NPPB PRN ×2 (10:30→15:30)
[2018-01-16] MEDS ORDERED: ALBUTEROL/IPRATROPIUM 2.5MG/0.5MG, 3 ML NPPB PRN (10:30)
[2018-01-16] MEDS ORDERED: ONDANSETRON 2MG/ML, 2ML IVPush PRN (10:30)
[2018-01-16] MEDS ORDERED: hydrALAzine 20 MG/ML, 1ML IV PRN (10:30)
[2018-01-16] MEDS ORDERED: MIDAZOLAM 1 MG/ML, 2ML IV PRN (10:30)
[2018-01-16] MEDS ORDERED: OXYcodone 5 MG/5 ML ORAL.SOL UDC PO PRN (10:30)
[2018-01-16] MEDS ORDERED: MORPHINE SULFATE 4 MG/ML, 1ML IV PRN (10:30)
[2018-01-16] MEDS ORDERED: LABETALOL 5MG/ML, 20ML IV PRN (10:30)
[2018-01-16] MEDS ORDERED: ACETAMINOPHEN 325 MG TABLET PO PRN (10:30)
[2018-01-16] MEDS ORDERED: ONDANSETRON 2MG/ML, 2ML ONE (11:22)
[2018-01-16] MEDS ORDERED: DEXAMETHASONE 4 MG/ML, 1ML ONE (11:22)
[2018-01-16] MEDS ORDERED: PROPOFOL 10 MG/ML, 20ML ONE (11:22)
[2018-01-16] MEDS ORDERED: CEFAZOLIN 1,000 MG ONE (11:22)
[2018-01-16] MEDS ORDERED: PHENYLEPHRINE 10 MG in DEXTROSE 5% 249 ML IV SCH (11:46)
[2018-01-16] MEDS ORDERED: HYDROcodone/APAP 5/325 TABLET PO PRN (12:00)
[2018-01-16] MEDS: D5%-LACTATED RINGERS 1,000 ML IV SCH ×2 (14:57→21:00)
[2018-01-16] MEDS: CLOPIDOGREL 75 MG TABLET PO SCH (18:28)
[2018-01-16] MEDS: ATORVASTATIN 20 MG TABLET PO SCH (20:36)
[2018-01-17] MEDS: D5%-LACTATED RINGERS 1,000 ML IV SCH (05:00)
[2018-01-17 05:14] LABS: BASOPHILS # (AUTO) 0.05 x10^3/uL (0-0.1); BASOPHILS % (AUTO) 0 % (0-1); EOSINOPHILS % (AUTO) 0 % (1-7); LYMPHOCYTES # (AUTO) 0.57 x10^3/uL (1-3.4); LYMPHOCYTES % (AUTO) 5 % (22-44); MD SCAN; MEAN CORPUSCULAR HEMOGLOBIN 29.1 pg (27.5-34.5); MEAN CORPUSCULAR HGB CONC 32.6 g/dL (33.2-36.2); MEAN CORPUSCULAR VOLUME 89.3 fL (81-97); MEAN PLATELET VOLUME 8.5 fL (7.4-10.4); MONOCYTES # (AUTO) 0.51 x10^3/uL (0.2-0.8); MONOCYTES % (AUTO) 4 % (2-9); NEUTROPHILS # (AUTO) 11.47 x10^3/uL (1.8-6.8); NEUTROPHILS % (AUTO) 91 % (42-75); PLATELET COUNT 168 x10^3/uL (130-400); RED BLOOD COUNT 3.53 x10^6/uL (4.38-5.82); RED CELL DISTRIBUTION WIDTH 19.9 % (9.4-14.8)
[2018-01-17 05:24] LABS: ALANINE AMINOTRANSFERASE 17 U/L (12-78); ALBUMIN 2.5 g/dL (3.4-5.0); ANION GAP 8 mmol/L (5-15); CALCIUM 8.2 mg/dL (8.5-10.1); CHLORIDE 108 mmol/L (98-107); CREATININE 1.02 mg/dL (0.7-1.3)
[2018-01-17 05:26] LABS: ALKALINE PHOSPHATASE 77 U/L (45-117); BILIRUBIN,TOTAL 0.4 mg/dL (0.2-1.0); TOTAL PROTEIN 5.8 g/dL (6.4-8.2)
[2018-01-17] MEDS: LEVOTHYROXINE 150 MCG TABLET PO SCH (06:35)
[2018-01-17] MEDS: CALCITRIOL 0.25 MCG CAPSULE PO SCH ×3 (07:30→19:45)
[2018-01-17] MEDS: FLUTICASONE/VILANTEROL 200-25MCG/INH INH SCH (07:30)
[2018-01-17] MEDS: FUROSEMIDE 40 MG TABLET PO SCH (07:30)
[2018-01-17] MEDS: CLOPIDOGREL 75 MG TABLET PO SCH (07:30)
[2018-01-17] MEDS: CETIRIZINE 10 MG TABLET PO SCH (07:30)
[2018-01-17 11:41] VITALS: BP 124/68
[2018-01-17 14:00] VITALS: BP 109/66
[2018-01-17 19:30] VITALS: BP 110/56
[2018-01-17] MEDS: ATORVASTATIN 20 MG TABLET PO SCH (19:45)
[2018-01-18 02:40] VITALS: BP 122/69
[2018-01-18] MEDS ORDERED: LEVOTHYROXINE 125 MCG TABLET ONE (05:23)
[2018-01-18] MEDS ORDERED: LEVOTHYROXINE 25 MCG TABLET ONE (05:23)
[2018-01-18] MEDS: LEVOTHYROXINE 150 MCG TABLET PO SCH (06:00)
[2018-01-18 06:41] VITALS: BP 129/72
[2018-01-18] MEDS: CALCITRIOL 0.25 MCG CAPSULE PO SCH ×3 (09:10→20:38)
[2018-01-18] MEDS: CLOPIDOGREL 75 MG TABLET PO SCH (09:10)
[2018-01-18] MEDS: FUROSEMIDE 40 MG TABLET PO SCH (09:11)
[2018-01-18] MEDS: CETIRIZINE 10 MG TABLET PO SCH (09:23)
[2018-01-18] MEDS: FLUTICASONE/VILANTEROL 200-25MCG/INH INH SCH (09:24)
[2018-01-18 12:05] VITALS: BP 132/63
[2018-01-18 15:56] VITALS: BP 113/66
[2018-01-18 20:37] VITALS: BP 115/66
[2018-01-18] MEDS: ATORVASTATIN 20 MG TABLET PO SCH (20:38)
[2018-01-19 01:12] VITALS: BP 132/73
[2018-01-19] MEDS: LEVOTHYROXINE 150 MCG TABLET PO SCH (05:14)
[2018-01-19] MEDS: FUROSEMIDE 40 MG TABLET PO SCH (08:33)
[2018-01-19] MEDS: CETIRIZINE 10 MG TABLET PO SCH (08:33)
[2018-01-19] MEDS: CLOPIDOGREL 75 MG TABLET PO SCH (08:33)
[2018-01-19] MEDS: CALCITRIOL 0.25 MCG CAPSULE PO SCH (08:33)
[2018-01-19] MEDS: FLUTICASONE/VILANTEROL 200-25MCG/INH INH SCH (08:34)
[2018-01-19 08:39] VITALS: BP 130/65
[2018-01-19 13:02] VITALS: BP 117/67
== END 2018-01-19 14:00 | DRG 37 ==
LOC: ED 18:06 → EDIP 18:26 → 4WST 19:46 → CCU 01-16 14:39 → 4NOR 01-17 11:25
PROVIDERS: ADMIT Hospitalist; ATTEND Hospitalist
PROC: 03UK0JZ Supplement Right Internal Carotid Artery with Synthetic Substitute, Open Approach (ICD-10-PCS; 2018-01-16)
PROC: 03CH0ZZ Extirpation of Matter from Right Common Carotid Artery, Open Approach (ICD-10-PCS; 2018-01-16)
PROC: 03CM0ZZ Extirpation of Matter from Right External Carotid Artery, Open Approach (ICD-10-PCS; 2018-01-16)
PROC: 03CK0ZZ Extirpation of Matter from Right Internal Carotid Artery, Open Approach (ICD-10-PCS; principal; 2018-01-16 08:30)
DX: I65.23 Occlusion and stenosis of bilateral carotid arteries (principal); G93.40 Encephalopathy, unspecified; J96.21 Acute and chronic respiratory failure with hypoxia; R57.9 Shock, unspecified; G93.1 Anoxic brain damage, not elsewhere classified; C62.90 Malignant neoplasm of unspecified testis, unspecified whether descended or undescended; D72.829 Elevated white blood cell count, unspecified; N17.9 Acute kidney failure, unspecified; D68.69 Other thrombophilia; J44.1 Chronic obstructive pulmonary disease with (acute) exacerbation; I48.2 Chronic atrial fibrillation; E03.9 Hypothyroidism, unspecified; E78.5 Hyperlipidemia, unspecified; F17.210 Nicotine dependence, cigarettes, uncomplicated; I12.9 Hypertensive chronic kidney disease with stage 1 through stage 4 chronic kidney disease, or unspecified chronic kidney disease; I73.9 Peripheral vascular disease, unspecified; N18.9 Chronic kidney disease, unspecified; Z79.01 Long term (current) use of anticoagulants; Z85.47 Personal history of malignant neoplasm of testis; Z85.51 Personal history of malignant neoplasm of bladder; Z99.81 Dependence on supplemental oxygen; Z90.49 Acquired absence of other specified parts of digestive tract; Z88.8 Allergy status to other drugs, medicaments and biological substances
CPT/HCPCS: 36415; 70450; 71045; 76770; 80047; 80048; 80053; 80061; 83735; 84100; 85025; 85520; 85610; 85730; 87081; 93005; 93880; 94640; 96374; 99285; C1729; J0171; J0690; J1100; J1644; J2405; J2704; J2720; J3010; J3490; J7060; J7620; C1760; C1781; J0330; J2370; J2440; J2930; J7030; J7121

== ENCOUNTER 2018-02-10 09:48 | Inpatient (IN) | payer MEDICARE, OTHER ==
[~2018-02-10] VITALS: Ht 182.9 cm; Wt 96.9 kg
[~2018-02-10 09:48] MED LIST changes: +PREDNISONE
[2018-02-10] MEDS ORDERED: SODIUM CHLORIDE FLUSH 10ML SYR IVF ONE ×2 (10:00→13:00)
[2018-02-10 10:15] LABS: BASOPHILS # (AUTO) 0.02 x10^3/uL (0-0.1); BASOPHILS % (AUTO) 0 % (0-1); EOSINOPHILS # (AUTO) 0.02 x10^3/uL (0-0.4); EOSINOPHILS % (AUTO) 0 % (1-7); LYMPHOCYTES # (AUTO) 0.91 x10^3/uL (1-3.4); LYMPHOCYTES % (AUTO) 9 % (22-44); MD NO; MEAN CORPUSCULAR HGB CONC 32.5 g/dL (33.2-36.2); MEAN CORPUSCULAR VOLUME 89.3 fL (81-97); MEAN PLATELET VOLUME 8.4 fL (7.4-10.4); MONOCYTES # (AUTO) 1.14 x10^3/uL (0.2-0.8); MONOCYTES % (AUTO) 11 % (2-9); NEUTROPHILS # (AUTO) 8.61 x10^3/uL (1.8-6.8); NEUTROPHILS % (AUTO) 81 % (42-75); PLATELET COUNT 224 x10^3/uL (130-400); RED BLOOD COUNT 3.43 x10^6/uL (4.38-5.82); RED CELL DISTRIBUTION WIDTH 19.1 % (9.4-14.8)
[2018-02-10 10:21] LABS: INTERNATIONAL NORMALIZED RATIO 1.16 (0.93-1.1)
[2018-02-10] MEDS ORDERED: PRED10TA PO (10:21)
[2018-02-10] MEDS ORDERED: MORP20SO PO (10:21)
[2018-02-10] MEDS ORDERED: LORA0.5T PO (10:21)
[2018-02-10] MEDS ORDERED: CETI10TA24 PO (10:21)
[2018-02-10 10:26] LABS: ALBUMIN 2.4 g/dL (3.4-5.0); ANION GAP 9 mmol/L (5-15); CALCIUM 8.5 mg/dL (8.5-10.1); CHLORIDE 112 mmol/L (98-107)
[2018-02-10 10:31] LABS: ALANINE AMINOTRANSFERASE 29 U/L (12-78); ALKALINE PHOSPHATASE 81 U/L (45-117); CREATININE 1.73 mg/dL (0.7-1.3); TOTAL PROTEIN 6.6 g/dL (6.4-8.2)
[2018-02-10] MEDS ORDERED: BISACODYL 10 MG SUPP PR PRN (12:00)
[2018-02-10] MEDS ORDERED: ACETAMINOPHEN 325 MG TABLET PO PRN (12:00)
[2018-02-10] MEDS ORDERED: DOCUSATE 100 MG CAPSULE PO PRN (12:00)
[2018-02-10] MEDS ORDERED: ONDANSETRON 2MG/ML, 2ML IVPush PRN (12:00)
[2018-02-10] MEDS ORDERED: POLYETHYLENE GLYCOL 17 GM PACKET PO PRN (12:00)
[2018-02-10] MEDS ORDERED: ALBUTEROL/IPRATROPIUM 2.5MG/0.5MG, 3 ML ONE (12:44)
[2018-02-10] MEDS: ALBUTEROL/IPRATROPIUM 2.5MG/0.5MG, 3 ML NPPB SCH ×4 (12:57→23:05)
[2018-02-10 15:30] VITALS: BP 130/70
[2018-02-10 19:28] VITALS: BP 117/72
[2018-02-10] MEDS: SODIUM CHLORIDE 0.9% 1,000 ML IV SCH (19:50)
[2018-02-10] MEDS: DABIGATRAN 75 MG CAPSULE PO SCH (20:47)
[2018-02-11 01:48] VITALS: BP 115/73
[2018-02-11] MEDS: SODIUM CHLORIDE 0.9% 1,000 ML IV SCH ×2 (03:50→11:45)
[2018-02-11 06:29] LABS: BASOPHILS # (AUTO) 0.06 x10^3/uL (0-0.1); BASOPHILS % (AUTO) 1 % (0-1); EOSINOPHILS # (AUTO) 0.31 x10^3/uL (0-0.4); EOSINOPHILS % (AUTO) 3 % (1-7); LYMPHOCYTES # (AUTO) 0.76 x10^3/uL (1-3.4); LYMPHOCYTES % (AUTO) 8 % (22-44); MD NO; MEAN CORPUSCULAR HEMOGLOBIN 29.2 pg (27.5-34.5); MEAN CORPUSCULAR HGB CONC 32.6 g/dL (33.2-36.2); MEAN CORPUSCULAR VOLUME 89.7 fL (81-97); MEAN PLATELET VOLUME 7.9 fL (7.4-10.4); MONOCYTES # (AUTO) 0.99 x10^3/uL (0.2-0.8); MONOCYTES % (AUTO) 10 % (2-9); NEUTROPHILS # (AUTO) 7.94 x10^3/uL (1.8-6.8); NEUTROPHILS % (AUTO) 79 % (42-75); PLATELET COUNT 213 x10^3/uL (130-400); RED BLOOD COUNT 3.57 x10^6/uL (4.38-5.82); RED CELL DISTRIBUTION WIDTH 19.1 % (9.4-14.8)
[2018-02-11 06:41] LABS: ANION GAP 6 mmol/L (5-15); CALCIUM 9.1 mg/dL (8.5-10.1); CHLORIDE 114 mmol/L (98-107); CREATININE 1.52 mg/dL (0.7-1.3)
[2018-02-11] MEDS: ALBUTEROL/IPRATROPIUM 2.5MG/0.5MG, 3 ML NPPB SCH ×4 (07:00→20:00)
[2018-02-11 08:19] VITALS: BP 132/74
[2018-02-11] MEDS: ASPIRIN 81 MG TABLET CHEW PO/NG SCH (09:00)
[2018-02-11] MEDS: LEVOTHYROXINE 150 MCG TABLET PO SCH (09:00)
[2018-02-11] MEDS: DABIGATRAN 75 MG CAPSULE PO SCH ×2 (09:00→20:58)
[2018-02-11 14:30] VITALS: BP 131/71
[2018-02-11 19:00] VITALS: BP 152/76
[2018-02-12] MEDS ORDERED: DIPHENHYDRAMINE 50 MG/ML, 1ML IVPush ONE (01:00)
[2018-02-12 01:23] VITALS: BP 145/69
[2018-02-12 05:21] LABS: BASOPHILS # (AUTO) 0.01 x10^3/uL (0-0.1); BASOPHILS % (AUTO) 0 % (0-1); EOSINOPHILS # (AUTO) 0.24 x10^3/uL (0-0.4); EOSINOPHILS % (AUTO) 3 % (1-7); LYMPHOCYTES # (AUTO) 0.95 x10^3/uL (1-3.4); LYMPHOCYTES % (AUTO) 10 % (22-44); MD NO; MEAN CORPUSCULAR HEMOGLOBIN 29.3 pg (27.5-34.5); MEAN CORPUSCULAR HGB CONC 32.7 g/dL (33.2-36.2); MEAN CORPUSCULAR VOLUME 89.7 fL (81-97); MEAN PLATELET VOLUME 8.1 fL (7.4-10.4); MONOCYTES # (AUTO) 1.12 x10^3/uL (0.2-0.8); MONOCYTES % (AUTO) 12 % (2-9); NEUTROPHILS % (AUTO) 76 % (42-75); PLATELET COUNT 230 x10^3/uL (130-400); RED BLOOD COUNT 3.74 x10^6/uL (4.38-5.82)
[2018-02-12 05:32] LABS: CHLORIDE 115 mmol/L (98-107)
[2018-02-12 05:37] LABS: ANION GAP 7 mmol/L (5-15); CALCIUM 8.8 mg/dL (8.5-10.1); CREATININE 1.38 mg/dL (0.7-1.3)
[2018-02-12] MEDS: ALBUTEROL/IPRATROPIUM 2.5MG/0.5MG, 3 ML NPPB SCH ×4 (07:00→20:00)
[2018-02-12 08:00] VITALS: BP 133/79
[2018-02-12] MEDS: LEVOTHYROXINE 150 MCG TABLET PO SCH (09:00)
[2018-02-12] MEDS: ASPIRIN 81 MG TABLET CHEW PO/NG SCH (09:00)
[2018-02-12] MEDS: DABIGATRAN 75 MG CAPSULE PO SCH ×2 (09:00→21:00)
[2018-02-12] MEDS: SODIUM CHLORIDE 0.9% 1,000 ML IV SCH ×2 (11:55→21:55)
[2018-02-12 14:09] VITALS: BP 133/65
[2018-02-12] MEDS ORDERED: LORazepam 2 MG/ML, 1ML IVPush PRN (19:30)
[2018-02-12] MEDS ORDERED: SCOPOLAMINE PATCH, 1.5MG PATCH.TD72 TD PRN (19:30)
[2018-02-12] MEDS: MORPHINE SULFATE 4 MG/ML, 1ML IVPush PRN (20:05)
[2018-02-13] MEDS ORDERED: ATROPINE OPHTH SOLN 1%, 5ML BC PRN (01:00)
[2018-02-13] MEDS: MORPHINE SULFATE 4 MG/ML, 1ML IVPush PRN (01:43)
== END 2018-02-13 05:40 | disposition expired | DRG 64 ==
LOC: ED 11:12 → EDIP 11:41 → 3NE 14:49
PROVIDERS: ADMIT Internal Medicine; ATTEND Internal Medicine
DX: I63.512 Cerebral infarction due to unspecified occlusion or stenosis of left middle cerebral artery (principal); J96.21 Acute and chronic respiratory failure with hypoxia; E43 Unspecified severe protein-calorie malnutrition; N17.9 Acute kidney failure, unspecified; I48.2 Chronic atrial fibrillation; J84.10 Pulmonary fibrosis, unspecified; Z99.81 Dependence on supplemental oxygen; G81.91 Hemiplegia, unspecified affecting right dominant side; R41.4 Neurologic neglect syndrome; D64.9 Anemia, unspecified; R47.01 Aphasia; R29.810 Facial weakness; N18.3 Chronic kidney disease, stage 3 (moderate); J44.9 Chronic obstructive pulmonary disease, unspecified; Z66 Do not resuscitate; Z51.5 Encounter for palliative care; I12.9 Hypertensive chronic kidney disease with stage 1 through stage 4 chronic kidney disease, or unspecified chronic kidney disease; I73.9 Peripheral vascular disease, unspecified; E03.9 Hypothyroidism, unspecified; Z90.79 Acquired absence of other genital organ(s); Z90.49 Acquired absence of other specified parts of digestive tract; Z87.891 Personal history of nicotine dependence; Z86.73 Personal history of transient ischemic attack (TIA), and cerebral infarction without residual deficits; Z85.51 Personal history of malignant neoplasm of bladder; Z85.47 Personal history of malignant neoplasm of testis; Z79.01 Long term (current) use of anticoagulants; Z88.8 Allergy status to other drugs, medicaments and biological substances; Z68.29 Body mass index [BMI] 29.0-29.9, adult
CPT/HCPCS: 36415; 70450; 71045; 80048; 80053; 84145; 85025; 85610; 85730; 93005; 93306; 93880; 94640; J7620; J1200; J2060